=== PATIENT | male | born 1990 | race Caucasian/White ===

== ENCOUNTER 2019-05-01 04:13 | Emergency (ER) | payer MEDICAID, OTHER, SELFPAY ==
[~2019-05-01] VITALS: Ht 182.9 cm; Wt 88.1 kg
[2019-05-01] MEDS ORDERED: ONDANSETRON 2MG/ML, 2ML ONE (04:38)
[2019-05-01] MEDS ORDERED: HYDROmorphone 2 MG/ML, 1ML ONE ×2 (04:39→05:57)
[2019-05-01] MEDS: HYDROmorphone 1 MG/ML, 1ML INJ IVPush PRN ×2 (04:52→06:00)
--- NOTE | 2019-05-01 04:53 | NUR ---
PER MD MATHEWS FOR CT PRIOR TO LABWORK. CT CALLED AND INFORMED.
--- NOTE | 2019-05-01 04:54 | NUR ---
PT PLACED IN C COLLAR
--- NOTE | 2019-05-01 04:59 | NUR ---
PT TO CT NOW
[2019-05-01] MEDS ORDERED: SODIUM CHLORIDE 0.9% 1,000ML IVBOLUS ONE (05:00)
[2019-05-01] MEDS ORDERED: DIPH,PERTUSS(ACELL),TET VAC/PF 0.5 ML IM-VACC ONE ×2 (05:00→05:52)
[2019-05-01] MEDS ORDERED: SODIUM CHLORIDE FLUSH 10ML SYR IVF ONE (05:00)
[2019-05-01] MEDS ORDERED: ONDANSETRON 2MG/ML, 2ML IVPush ONE (05:00)
[2019-05-01 05:33] LABS: INTERNATIONAL NORMALIZED RATIO 0.95 (0.93-1.1)
[2019-05-01 05:37] LABS: ALANINE AMINOTRANSFERASE 37 U/L (12-78); ALBUMIN 4.3 g/dL (3.4-5.0); ANION GAP 9 mmol/L (5-15); BASOPHILS # (AUTO) 0.04 x10^3/uL (0-0.1); BASOPHILS % (AUTO) 0 % (0-1); CALCIUM 8.5 mg/dL (8.5-10.1); CHLORIDE 108 mmol/L (98-107); CREATININE 0.89 mg/dL (0.7-1.3); EOSINOPHILS % (AUTO) 1 % (1-7); LYMPHOCYTES # (AUTO) 1.65 x10^3/uL (1-3.4); LYMPHOCYTES % (AUTO) 18 % (22-44); MD NO; MEAN CORPUSCULAR HEMOGLOBIN 31.4 pg (27.5-34.5); MEAN CORPUSCULAR HGB CONC 34.3 g/dL (33.2-36.2); MEAN CORPUSCULAR VOLUME 91.6 fL (81-97); MEAN PLATELET VOLUME 7.4 fL (7.4-10.4); MONOCYTES % (AUTO) 10 % (2-9); NEUTROPHILS # (AUTO) 6.27 x10^3/uL (1.8-6.8); NEUTROPHILS % (AUTO) 70 % (42-75); PLATELET COUNT 242 x10^3/uL (130-400); RED BLOOD COUNT 4.83 x10^6/uL (4.38-5.82)
[2019-05-01 05:39] LABS: ALKALINE PHOSPHATASE 47 U/L (45-117); BILIRUBIN,TOTAL 0.5 mg/dL (0.2-1.0); TOTAL PROTEIN 7.4 g/dL (6.4-8.2)
[2019-05-01] MEDS ORDERED: OMNIPAQUE 350 MG/ML, 100ML BOTTLE ONE (05:41)
--- NOTE | 2019-05-01 06:31 | NUR ---
PT REMOVED FROM CERV[facility] COLLAR PER MD MATHEWS
[2019-05-01] MEDS ORDERED: MORPHINE SULFATE 4 MG/ML, 1ML ONE (07:32)
--- NOTE | 2019-05-01 07:56 | NUR ---
Care providers at bedside to discuss plan of care and transfer with patient. Patient agreeable to [facility] transfer at this time. Denies any further questions, or needs at this time. Report called to dave Moore RN at [facility].
[2019-05-01 08:38] VITALS: BP 132/66
== END 2019-05-01 08:42 | disposition home or self-care (01) ==
LOC: ED 04:59
DX: S22.42XA Multiple fractures of ribs, left side, initial encounter for closed fracture (principal); S16.1XXA Strain of muscle, fascia and tendon at neck level, initial encounter; S40.212A Abrasion of left shoulder, initial encounter; S50.812A Abrasion of left forearm, initial encounter; S40.812A Abrasion of left upper arm, initial encounter; V87.8XXA Person injured in other specified noncollision transport accidents involving motor vehicle (traffic), initial encounter; Y93.55 Activity, bike riding; Y92.488 Other paved roadways as the place of occurrence of the external cause; Y99.8 Other external cause status
CPT/HCPCS: 36415; 70450; 71045; 71260; 72125; 72128; 72131; 73030; 74177; 80053; 80307; 85025; 85610; 85730; 90471; 90715; 96374; 96375; 96376; 99284; J1170; J2405; Q9967

== ENCOUNTER 2019-05-12 05:41 | Emergency (ER) | payer SELFPAY ==
[~2019-05-12] VITALS: Ht 182.9 cm; Wt 91.8 kg
[2019-05-12] MEDS ORDERED: SODIUM CHLORIDE 0.9% 1,000 ML IV ONE (05:55)
[2019-05-12] MEDS ORDERED: SODIUM CHLORIDE FLUSH 10ML SYR IVF ONE (06:00)
[2019-05-12] MEDS ORDERED: FAMOTIDINE 20 MG/2 ML IVP ONE (06:00)
[2019-05-12] MEDS ORDERED: ONDANSETRON 2MG/ML, 2ML IVPush ONE ×2 (06:00→08:00)
[2019-05-12] MEDS ORDERED: SODIUM CHLORIDE 0.9% 1,000ML IVBOLUS ONE (06:00)
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
[2019-05-12] MEDS ORDERED: ONDANSETRON 2MG/ML, 2ML ONE ×2 (06:02→07:52)
[2019-05-12] MEDS ORDERED: MORPHINE SULFATE 4 MG/ML, 1ML ONE ×2 (06:03→07:14)
[2019-05-12] MEDS ORDERED: FAMOTIDINE 20 MG/2 ML ONE (06:03)
[2019-05-12] MEDS: MORPHINE SULFATE 4 MG/ML, 1ML IVPush PRN ×2 (06:14→07:16)
[2019-05-12 06:21] LABS: BASOPHILS # (AUTO) 0.08 x10^3/uL (0-0.1); BASOPHILS % (AUTO) 1 % (0-1); EOSINOPHILS # (AUTO) 0.06 x10^3/uL (0-0.4); EOSINOPHILS % (AUTO) 1 % (1-7); LYMPHOCYTES # (AUTO) 1.86 x10^3/uL (1-3.4); LYMPHOCYTES % (AUTO) 14 % (22-44); MD NO; MEAN CORPUSCULAR HEMOGLOBIN 30.9 pg (27.5-34.5); MEAN CORPUSCULAR HGB CONC 33.7 g/dL (33.2-36.2); MEAN CORPUSCULAR VOLUME 91.6 fL (81-97); MEAN PLATELET VOLUME 6.9 fL (7.4-10.4); MONOCYTES # (AUTO) 0.68 x10^3/uL (0.2-0.8); MONOCYTES % (AUTO) 5 % (2-9); NEUTROPHILS # (AUTO) 10.42 x10^3/uL (1.8-6.8); NEUTROPHILS % (AUTO) 80 % (42-75); PLATELET COUNT 353 x10^3/uL (130-400); RED BLOOD COUNT 4.79 x10^6/uL (4.38-5.82); RED CELL DISTRIBUTION WIDTH 12.6 % (9.4-14.8)
--- NOTE | 2019-05-12 06:31 | NUR ---
PT MEDICATED PER EMAR. PT TOLERATED WELL. NS INFUSING AT THIS TIME.
[2019-05-12 06:34] LABS: ANION GAP 10 mmol/L (5-15); CALCIUM 8.8 mg/dL (8.5-10.1); CHLORIDE 105 mmol/L (98-107)
[2019-05-12 06:36] LABS: ALANINE AMINOTRANSFERASE 24 U/L (12-78); ALKALINE PHOSPHATASE 75 U/L (45-117); BILIRUBIN,TOTAL 0.5 mg/dL (0.2-1.0); CREATININE 1.04 mg/dL (0.7-1.3); TOTAL PROTEIN 7.5 g/dL (6.4-8.2)
--- NOTE | 2019-05-12 06:50 | NUR ---
report given to anton eason.
--- NOTE | 2019-05-12 07:00 | NUR ---
REPORT RECIEVED FROM RAHUL. PT RESTING COMFORTABLE. WENT FOR IMAGING
[2019-05-12 07:19] VITALS: BP 140/89
--- NOTE | 2019-05-12 07:24 | NUR ---
TOLERATING PO W OUT DIFFICULTY. DENIES NAUSEA. MEDICATED FOR PAIN PER ORDERS.
[2019-05-12] MEDS ORDERED: KETOROLAC 30 MG/1 ML ONE (07:42)
[2019-05-12] MEDS ORDERED: KETOROLAC 30 MG/1 ML IVPush ONE (08:00)
--- NOTE | 2019-05-12 08:00 | NUR ---
MEDICATED FOR NAUSEA. Patient given discharge instructions and they have confirmed that they understand the instructions. Patient ambulatory with steady gait.
== END 2019-05-12 08:02 ==
LOC: ED 06:19
DX: S22.5XXD Flail chest, subsequent encounter for fracture with routine healing (principal); R11.2 Nausea with vomiting, unspecified; R10.13 Epigastric pain; V86.56XD Driver of dirt bike or motor/cross bike injured in nontraffic accident, subsequent encounter
CPT/HCPCS: 36415; 74022; 80053; 80307; 83690; 85025; 96361; 96374; 96375; 96376; 99284; J1885; J2270; J2405; J3490; J7030

== ENCOUNTER 2019-10-05 16:50 | Emergency (ER) | payer SELFPAY ==
[~2019-10-05] VITALS: Ht 185.4 cm; Wt 81.7 kg
[2019-10-05 16:51] VITALS: BP 148/88
[2019-10-05] MEDS ORDERED: DIPH,PERTUSS(ACELL),TET VAC/PF 0.5 ML IM-VACC ONE ×2 (17:21→17:30)
[2019-10-05] MEDS ORDERED: CEFAZOLIN 1,000 MG ONE (17:21)
--- NOTE | 2019-10-05 17:25 | NUR ---
notified pa regarding pt answering of si questions. no orders received.
[2019-10-05] MEDS ORDERED: CEFAZOLIN 1,000 MG IM ONE (17:30)
== END 2019-10-05 17:38 | disposition home or self-care (01) ==
LOC: ED 17:30
DX: S51.011A Laceration without foreign body of right elbow, initial encounter (principal); L03.113 Cellulitis of right upper limb; W19.XXXA Unspecified fall, initial encounter; Y93.89 Activity, other specified; Y92.89 Other specified places as the place of occurrence of the external cause; Y99.8 Other external cause status
CPT/HCPCS: 90471; 90715; 96372; 99283; J0690

== ENCOUNTER 2019-10-07 07:35 | Emergency (ER) | payer OTHER ==
[~2019-10-07] VITALS: Ht 182.9 cm; Wt 81.5 kg
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
[2019-10-07] MEDS ORDERED: KETOROLAC 30 MG/1 ML IVPush ONE (08:00)
[2019-10-07] MEDS ORDERED: SODIUM CHLORIDE 0.9% 1,000ML IVBOLUS ONE (08:00)
[2019-10-07] MEDS ORDERED: CLINDAMYCIN PMX 900MG/50ML 50 ML IVPB ONE (08:00)
[2019-10-07] MEDS ORDERED: KETOROLAC 30 MG/1 ML ONE (08:16)
[2019-10-07] MEDS ORDERED: CLINDAMYCIN PMX 900MG/50ML 50 ML ONE (08:16)
[2019-10-07 08:29] LABS: BASOPHILS # (AUTO) 0.02 x10^3/uL (0-0.1); BASOPHILS % (AUTO) 0 % (0-1); EOSINOPHILS # (AUTO) 0.08 x10^3/uL (0-0.4); EOSINOPHILS % (AUTO) 1 % (1-7); LYMPHOCYTES # (AUTO) 0.82 x10^3/uL (1-3.4); LYMPHOCYTES % (AUTO) 9 % (22-44); MD NO; MEAN CORPUSCULAR HEMOGLOBIN 31.2 pg (27.5-34.5); MEAN CORPUSCULAR HGB CONC 33.9 g/dL (33.2-36.2); MEAN PLATELET VOLUME 7.4 fL (7.4-10.4); MONOCYTES # (AUTO) 0.58 x10^3/uL (0.2-0.8); MONOCYTES % (AUTO) 7 % (2-9); NEUTROPHILS # (AUTO) 7.32 x10^3/uL (1.8-6.8); NEUTROPHILS % (AUTO) 83 % (42-75); PLATELET COUNT 240 x10^3/uL (130-400); RED BLOOD COUNT 4.82 x10^6/uL (4.38-5.82); RED CELL DISTRIBUTION WIDTH 14.1 % (9.4-14.8)
[2019-10-07 08:39] LABS: ALBUMIN 3.7 g/dL (3.4-5.0); ANION GAP 6 mmol/L (5-15); CALCIUM 9.3 mg/dL (8.5-10.1); CHLORIDE 104 mmol/L (98-107); CREATININE 0.91 mg/dL (0.7-1.3)
[2019-10-07 09:43] VITALS: BP 123/89
--- NOTE | 2019-10-07 09:43 | NUR ---
Patient given discharge instructions and they have confirmed that they understand the instructions. Patient ambulatory with steady gait. Pt left with Rx, D/C paperwork, and all personal belongings. NADN. No needs expressed.
== END 2019-10-07 09:45 | disposition home or self-care (01) ==
LOC: ED 07:40
DX: L03.113 Cellulitis of right upper limb (principal)
CPT/HCPCS: 36415; 73080; 80048; 82040; 83605; 85025; 87040; 96365; 96375; 99284; J1885; J7030

== ENCOUNTER 2021-01-04 12:51 | Emergency (ER) | payer SELFPAY ==
[~2021-01-04] VITALS: Ht 182.9 cm; Wt 80.2 kg
[2021-01-04 12:56] VITALS: BP 124/74
[2021-01-04] MEDS ORDERED: CEFAZOLIN 1,000 MG IM ONE (13:30)
[2021-01-04] MEDS ORDERED: LIDOCAINE-MPF 2%, 2ML SQ ONE (13:30)
--- NOTE | 2021-01-04 13:38 | NUR ---
BREAK RN: PT IN DOORWAY OF ROOM, REQUESTING TO LEAVE PRIOR TO SUTURES. PT EDUCATED IMPORTANCE TO STAY. STEVIE JEONG IN ROOM.
[2021-01-04] MEDS ORDERED: LIDOCAINE-MPF 1%, 5ML ONE (13:48)
--- NOTE | 2021-01-04 13:49 | NUR ---
BREAK RN: TECH AT BEDSIDE FOR IRRIGATION
--- NOTE | 2021-01-04 15:01 | NUR ---
PA AT , PERFORMING WOUND CARE. TECHS AWAITING TO SPLINT.
[2021-01-04] MEDS ORDERED: NEOSPORIN OINT. PKT 1 PACKET ONE (15:12)
[2021-01-04] MEDS ORDERED: CEFAZOLIN 1,000 MG ONE (15:24)
--- NOTE | 2021-01-04 15:54 | NUR ---
Patient given discharge instructions and they have confirmed that they understand the instructions. Patient ambulatory with steady gait.
== END 2021-01-04 15:55 | disposition home or self-care (01) ==
LOC: ED 15:39
DX: S51.811A Laceration without foreign body of right forearm, initial encounter (principal); M25.531 Pain in right wrist; F17.210 Nicotine dependence, cigarettes, uncomplicated; X58.XXXA Exposure to other specified factors, initial encounter; Y93.89 Activity, other specified; Y92.89 Other specified places as the place of occurrence of the external cause; Y99.8 Other external cause status
CPT/HCPCS: 12034; 73090; 96372; 99284; J0690; J3490; 12004